=== PATIENT | female | born 1935 ===

== ENCOUNTER → 2018-08-17 21:41 | Outpatient (ROUT) | payer MEDICARE, BC, SELFPAY ==
[2018-08-17 22:26] LABS: BUN Creatinine Ratio 31.4 (6-22); Blood Urea Nitrogen 22 mg/dL (7-17); Calcium 9.5 mg/dL (8.4-10.2); Carbon Dioxide 28 mmol/L (22-32); Chloride 96 mmol/L (98-107); Estimated Glomerular Filt Rate > 60.0 mL/min (>60); Glucose 85 mg/dL (80-110); HEMOLYSIS < 15 (0-50); Potassium 4.2 mmol/L (3.4-5.1); Sodium 134 mmol/L (137-145)
[2018-08-17 23:33] LABS: Folate > 20.0 ng/mL (2.76-20.0); Vitamin B12 501 pg/mL (239-931)
== END ==
PROVIDERS: Visit Provider Family Medicine
DX: I10 Essential (primary) hypertension (principal); N39.0 Urinary tract infection, site not specified; E87.1 Hypo-osmolality and hyponatremia; K90.9 Intestinal malabsorption, unspecified
CPT/HCPCS: 36415; 80048; 82607; 82746; 87077; 87086; 87186